=== PATIENT | female | born 1945 | race Hispanic/Latino ===

== ENCOUNTER → 2018-07-12 | Outpatient (CLI) | payer OTHER, MEDICARE ==
[~2018-07-12] MED LIST: ACET325T51 PO; AEC81 PO; ASCO500T9 PO; CALC600T12 PO; CLOP75TA14 PO; IBUP-2353 PO; METO25TA3 PO; MULT-965 PO; PANT40TA25 PO; SIMV40TA2 PO; VITA1CAP PO
== END | disposition home or self-care (01) ==
LOC: RAH 08:32
PROVIDERS: ATTEND Internal Medicine
DX: I71.4 Abdominal aortic aneurysm, without rupture (principal)
CPT/HCPCS: 76700

== ENCOUNTER 2018-08-02 13:05 | Emergency (ER) | payer OTHER, MEDICARE ==
[2018-08-02] MEDS ORDERED: MORPHINE SULFATE 2 MG/ML 1ML SYG ONE (13:55)
[2018-08-02 14:12] LABS: BASOPHILS % (AUTO) 0.4 % (0.0-5.0); EOSINOPHILS % (AUTO) 0.3 % (0.0-8.0); HEMATOCRIT 39.9 % (36-48); LYMPHOCYTES % (AUTO) 13.1 % (21.0-51.0); MEAN CORPUSCULAR HEMOGLOBIN 35.5 pg (27.0-33.0); MEAN CORPUSCULAR HGB CONC 33.5 g/dL (32.0-36.0); MEAN CORPUSCULAR VOLUME 105.9 fL (79-99); MONOCYTES % (AUTO) 1.6 % (3.0-13.0); NEUTROPHILS % (AUTO) 84.6 % (40.0-77.0); PLATELET COUNT (AUTO) 246 K/uL (130-400); RED BLOOD CELL COUNT(AUTO) 3.76 MIL/uL (4.00-5.50); RED CELL DISTRIBUTION WIDTH 12.7 % (11.0-15.5); WHITE BLOOD COUNT (AUTO) 7.5 K/uL (4.8-10.8)
[2018-08-02 14:35] LABS: B-TYPE NATRIURETIC PEPTIDE 115 pg/mL (0-100)
[2018-08-02 15:45] LABS: CREATININE 0.7 mg/dL (0.5-1.5); POTASSIUM 4.1 mmol/L (3.5-5.1)
[2018-08-02 15:50] LABS: ALBUMIN 3.6 g/dL (3.5-5.0); BILIRUBIN,TOTAL 0.3 mg/dL (0.2-1.0); TOTAL PROTEIN, SERUM 7.2 g/dL (6.0-8.3)
== END 2018-08-02 16:24 | disposition home or self-care (01) ==
LOC: EDH 13:05
DX: G89.18 Other acute postprocedural pain (principal); I11.0 Hypertensive heart disease with heart failure; R06.02 Shortness of breath; I50.9 Heart failure, unspecified; E78.5 Hyperlipidemia, unspecified; Z90.49 Acquired absence of other specified parts of digestive tract; Z96.649 Presence of unspecified artificial hip joint; Z72.0 Tobacco use; Z88.1 Allergy status to other antibiotic agents
CPT/HCPCS: 36415; 71046; 80053; 82550; 83880; 84484; 85025; 93005; 96372

== ENCOUNTER → 2019-06-19 | Outpatient (CLI) | payer OTHER, MEDICARE ==
[~2019-06-19] MED LIST changes: -IBUP-2353 PO; +IBUP-2784 PO
== END | disposition home or self-care (01) ==
LOC: SHCH 08:33
PROVIDERS: ATTEND Internal Medicine Cardiovascular Disease
DX: R60.9 Edema, unspecified (principal)
CPT/HCPCS: 93970

== ENCOUNTER → 2019-07-16 | Outpatient (CLI) | payer OTHER, MEDICARE | END | disposition home or self-care (01) | LOC: RAH 12:49 | PROVIDERS: ATTEND Internal Medicine | DX: I71.4 Abdominal aortic aneurysm, without rupture (principal); Z90.49 Acquired absence of other specified parts of digestive tract | CPT/HCPCS: 76700 ==

== ENCOUNTER → 2020-02-10 | Outpatient (CLI) | payer OTHER, MEDICARE ==
[~2020-02-10] MED LIST changes: +ASCO500T20 PO; -ASCO500T9 PO; -CALC600T12 PO; +CALC600T15 PO; -PANT40TA25 PO; +PANT40TA54 PO
== END | disposition home or self-care (01) ==
LOC: RAH 07:39
PROVIDERS: ATTEND Internal Medicine
DX: I71.9 Aortic aneurysm of unspecified site, without rupture (principal); R94.5 Abnormal results of liver function studies
CPT/HCPCS: 76700

== ENCOUNTER → 2020-04-02 | Outpatient (CLI) | payer OTHER, MEDICARE | END | disposition home or self-care (01) | LOC: SHCH 08:00 | PROVIDERS: ATTEND Internal Medicine Cardiovascular Disease | DX: I71.4 Abdominal aortic aneurysm, without rupture (principal) | CPT/HCPCS: 93978 ==

== ENCOUNTER → 2020-05-14 | Outpatient (CLI) | payer OTHER, MEDICARE ==
[~2020-05-14] MED LIST changes: +IOHEXOL-350 50ML VIAL IV ONE
== END | disposition home or self-care (01) ==
LOC: RAH 08:40
PROVIDERS: ATTEND Internal Medicine Cardiovascular Disease
DX: I71.4 Abdominal aortic aneurysm, without rupture (principal); I70.0 Atherosclerosis of aorta; I70.8 Atherosclerosis of other arteries; K83.8 Other specified diseases of biliary tract; Z90.49 Acquired absence of other specified parts of digestive tract
CPT/HCPCS: 74174; Q9967

== ENCOUNTER → 2020-05-21 | Outpatient (CLI) | payer OTHER, MEDICARE ==
[~2020-05-21] MED LIST changes: -IOHEXOL-350 50ML VIAL IV ONE
== END | disposition home or self-care (01) ==
LOC: RAH 10:00
PROVIDERS: ATTEND Internal Medicine
DX: R60.0 Localized edema (principal)
CPT/HCPCS: 76882

== ENCOUNTER 2020-08-24 09:00 | Inpatient (IN) | payer OTHER, MEDICARE ==
[~2020-08-24] VITALS: Ht 180.3 cm; Wt 64.7 kg
[~2020-08-24 09:00] MED LIST changes: -ACET325T51 PO; +CALC-1125 PO; -CALC600T15 PO; -IBUP-2784 PO; -METO25TA3 PO; -MULT-965 PO; -SIMV40TA2 PO
[2020-08-24 10:36] LABS: BASOPHILS % (AUTO) 0.8 % (0.0-5.0); EOSINOPHILS % (AUTO) 2.8 % (0.0-8.0); HEMATOCRIT 37.2 % (36-48); LYMPHOCYTES % (AUTO) 30.4 % (21.0-51.0); MEAN CORPUSCULAR HEMOGLOBIN 35.7 pg (27.0-33.0); MEAN CORPUSCULAR HGB CONC 33.3 g/dL (32.0-36.0); MEAN CORPUSCULAR VOLUME 107.2 fL (79-99); MONOCYTES % (AUTO) 6.2 % (3.0-13.0); NEUTROPHILS % (AUTO) 59.5 % (40.0-77.0); PLATELET COUNT (AUTO) 202 K/uL (130-400); RED BLOOD CELL COUNT(AUTO) 3.47 MIL/uL (4.00-5.50); RED CELL DISTRIBUTION WIDTH 12.7 % (11.0-15.5); WHITE BLOOD COUNT (AUTO) 6.2 K/uL (4.8-10.8)
[2020-08-24 10:41] LABS: APPEARANCE,URINE Clear (CLEAR); BILIRUBIN,URINE Negative (NEGATIVE); COLOR,URINE Yellow (YELLOW); GLUCOSE, URINE (UA) Negative (NEGATIVE); KETONES,URINE Negative (NEGATIVE); LEUKOCYTE ESTERASE ,URINE Small (NEGATIVE); NITRATE,URINE Negative (NEGATIVE); OCCULT BLOOD,URINE Negative (NEGATIVE); PH,URINE 6.5 (5.0-8.0); PROTEIN,URINE Negative (NEGATIVE)
[2020-08-24 10:45] LABS: CREATININE 0.8 mg/dL (0.5-1.5); POTASSIUM 4.3 mmol/L (3.5-5.1)
[2020-08-24 10:49] LABS: PROTHROMBIN TIME 10.9 SEC (9.6-11.6)
[2020-08-24 10:50] LABS: PARTIAL THROMBOPLASTIN TIME 28.9 SEC (26.3-35.5)
[2020-08-24 11:16] LABS: BACTERIA,URINE Rare /HPF (None Seen); RBC,URINE 0-1 /HPF (0-1); SQUAMOUS EPITHELIAL CELL,UR Rare /HPF (0-2); WBC,URINE 0-1 /HPF (0-1)
[2020-08-26] MEDS ORDERED: OMEG-148 PO (09:30)
[2020-08-26] MEDS ORDERED: LOSA50TA2 PO (09:30)
[2020-08-26] MEDS ORDERED: MONT10TA21 PO (09:30)
[2020-08-26] MEDS ORDERED: GABA300C PO (09:30)
[2020-08-26] MEDS ORDERED: MILK500C PO (09:31)
[2020-08-26] MEDS ORDERED: TYLENOL PO (09:31)
[2020-08-27] VITALS (20 sets, daily range): BP systolic 106–156; BP diastolic 47–99
[2020-08-27] MEDS ORDERED: CEFAZOLIN SODIUM 1 GM VIAL IVP SCH (06:00)
[2020-08-27] MEDS ORDERED: 0.9%NACL 1000ML 1,000 ML IV ONE (06:25)
[2020-08-27] MEDS ORDERED: SUCCINYLCHOLINE CHLORIDE 20 MG/ML 10 ML VIAL ONE (06:28)
[2020-08-27] MEDS ORDERED: DEXAMETHASONE SOD PHOSPHATE 10MG/ML 1ML VIAL ONE (06:29)
[2020-08-27] MEDS ORDERED: PROPOFOL 10 MG/ML 20ML VIAL IV ONE ×2 (06:29→06:30)
[2020-08-27] MEDS ORDERED: ONDANSETRON 4MG INJ ONE ×2 (06:29→11:36)
[2020-08-27] MEDS ORDERED: LIDOCAINE PF 100MG/5ML (2%) SYRINGE 5ML ONE (06:29)
[2020-08-27] MEDS ORDERED: NEOSTIGMINE 5MG/5ML SYR IV ONE (06:29)
[2020-08-27] MEDS ORDERED: GLYCOPYRROLATE 1 MG/5 ML SYRINGE ONE (06:29)
[2020-08-27] MEDS ORDERED: MIDAZOLAM HCL 1 MG/ML 2ML VIAL ONE (06:29)
[2020-08-27] MEDS ORDERED: ROCURONIUM 10MG/1ML SYR 10 MG/ML ML ONE (06:30)
[2020-08-27] MEDS ORDERED: FENTANYL CITRATE PF 50 MCG/1 ML 2ML VIAL ONE ×2 (06:30)
[2020-08-27] MEDS ORDERED: PHENYLEPHRINE HCL 10 MG/ML 1ML VIAL IV ONE (06:32)
[2020-08-27] MEDS ORDERED: IODIXANOL 320 MG/ML 100 ML VIAL ONE (06:50)
[2020-08-27] MEDS ORDERED: HEPARIN 10,000 UNIT/10ML (1,000 UNIT/ML) VIAL ONE (06:50)
[2020-08-27] MEDS ORDERED: EPHEDRINE SULFATE 50 MG/ML AMPULE ONE (07:38)
[2020-08-27] MEDS ORDERED: ROCURONIUM BROMIDE 10MG/1ML 5ML VL ONE (07:57)
[2020-08-27] MEDS ORDERED: GLYCOPYRROLATE 0.2 MG/ML 5 ML VIAL ONE (09:00)
[2020-08-27] MEDS ORDERED: 0.9%NACL 1000ML 1,000 ML IV SCH (09:45)
[2020-08-27] MEDS ORDERED: MORPHINE 4 MG SYG IV PRN (09:45)
[2020-08-27] MEDS ORDERED: PHARMACY COMMUNICATION MISC SCH (09:45)
[2020-08-27] MEDS ORDERED: NOREPINEPHRIN 4MG/NS 250ML 250 ML IV PRN (10:00)
[2020-08-27] MEDS ORDERED: NITROGLYCERIN 50MG/D5W 250ML 1 BOT IV PRN (10:00)
[2020-08-27] MEDS: MORPHINE 5 MG/ML VIAL (5MG OR GREATER DOSE) IV PRN ×2 (10:35→16:42)
[2020-08-27] MEDS ORDERED: MAGNESIUM 2GM PREMIX 50ML 50 ML IV PRN (11:15)
[2020-08-27 11:30] LABS: HEMATOCRIT 37.3 % (36-48); MEAN CORPUSCULAR HEMOGLOBIN 35.4 pg (27.0-33.0); MEAN CORPUSCULAR HGB CONC 31.9 g/dL (32.0-36.0); RED BLOOD CELL COUNT(AUTO) 3.36 MIL/uL (4.00-5.50); RED CELL DISTRIBUTION WIDTH 12.8 % (11.0-15.5); WHITE BLOOD COUNT (AUTO) 6.9 K/uL (4.8-10.8)
[2020-08-27] MEDS ORDERED: IPRATROPIUM 0.5 MG/2.5 ML INH IH PRN (11:30)
[2020-08-27] MEDS ORDERED: ONDANSETRON 4MG INJ IVP SCH (11:30)
[2020-08-27] MEDS ORDERED: ONDANSETRON 4MG INJ IVP PRN (11:30)
[2020-08-27 12:00] LABS: ALBUMIN 3.5 g/dL (3.5-5.0); BILIRUBIN,TOTAL 0.4 mg/dL (0.2-1.0); CREATININE 0.9 mg/dL (0.5-1.5); MAGNESIUM 1.5 mg/dL (1.80-2.40); POTASSIUM 4.3 mmol/L (3.5-5.1); TOTAL PROTEIN, SERUM 6.9 g/dL (6.0-8.3)
[2020-08-27] MEDS: IPRATROPIUM 0.5 MG/2.5 ML INH IH SCH (12:14)
[2020-08-27 13:38] LABS: INR 1.1 (0.85-1.15); PROTHROMBIN TIME 11.9 SEC (9.6-11.6)
[2020-08-27] MEDS: CALCIUM CARB 500MG PO SCH ×2 (14:00→20:03)
[2020-08-27] MEDS: ASCORBIC ACID 500 MG TAB PO SCH ×2 (14:00→20:03)
[2020-08-27] MEDS: CEFAZOLIN SODIUM 1 GM VIAL IVP SCH ×2 (16:42→23:16)
[2020-08-27] MEDS: VITAMIN B COMPLEX 1 CAPSULE PO SCH (20:02)
[2020-08-27] MEDS: LOSARTAN 50 MG TABLET PO SCH (20:02)
[2020-08-27] MEDS: MONTELUKAST SODIUM 10 MG TAB PO SCH (20:03)
[2020-08-27] MEDS: GABAPENTIN 300 MG CAPSULE PO SCH (20:03)
[2020-08-27] MEDS: ACETAMINOPHEN 325 MG TAB PO SCH (20:04)
[2020-08-27] MEDS: **HM** MILK THISTLE 1000MG PO SCH (20:14)
[2020-08-28] VITALS (23 sets, daily range): BP systolic 102–159; BP diastolic 45–71
[2020-08-28] MEDS: MORPHINE 5 MG/ML VIAL (5MG OR GREATER DOSE) IV PRN ×3 (01:02→22:16)
[2020-08-28 03:28] LABS: HEMATOCRIT 31.8 % (36-48); MEAN CORPUSCULAR HEMOGLOBIN 34.9 pg (27.0-33.0); MEAN CORPUSCULAR HGB CONC 32.7 g/dL (32.0-36.0); MEAN CORPUSCULAR VOLUME 106.7 fL (79-99); RED BLOOD CELL COUNT(AUTO) 2.98 MIL/uL (4.00-5.50); RED CELL DISTRIBUTION WIDTH 12.6 % (11.0-15.5); WHITE BLOOD COUNT (AUTO) 7.3 K/uL (4.8-10.8)
[2020-08-28 03:37] LABS: CREATININE 0.7 mg/dL (0.5-1.5); MAGNESIUM 2.4 mg/dL (1.80-2.40); POTASSIUM 4.1 mmol/L (3.5-5.1)
[2020-08-28] MEDS: PANTOPRAZOLE 40 MG TAB DR PO SCH (08:48)
[2020-08-28] MEDS: FISH OIL 1000 MG/CAP PO SCH (08:49)
[2020-08-28] MEDS: ASPIRIN 81 MG EC TAB PO SCH (09:19)
[2020-08-28] MEDS: ASCORBIC ACID 500 MG TAB PO SCH ×3 (09:20→22:02)
[2020-08-28] MEDS: GABAPENTIN 300 MG CAPSULE PO SCH ×2 (09:20→21:58)
[2020-08-28] MEDS: CALCIUM CARB 500MG PO SCH ×3 (09:20→21:58)
[2020-08-28] MEDS: CLOPIDOGREL 75MG TAB PO SCH (09:20)
[2020-08-28] MEDS: ACETAMINOPHEN 325 MG TAB PO SCH ×2 (09:34→13:43)
[2020-08-28] MEDS: NICOTINE 21 MG/ 24 HR PATCH TD SCH (10:16)
[2020-08-28] MEDS: IPRATROPIUM 0.5 MG/2.5 ML INH IH SCH (11:30)
[2020-08-28] MEDS: VITAMIN B COMPLEX 1 CAPSULE PO SCH (21:57)
[2020-08-28] MEDS: LOSARTAN 50 MG TABLET PO SCH (21:57)
[2020-08-28] MEDS: PHENAZOPYRIDINE HCL 200 MG TABLET PO SCH (22:02)
[2020-08-28] MEDS: MONTELUKAST SODIUM 10 MG TAB PO SCH (22:02)
[2020-08-28] MEDS: **HM** MILK THISTLE 1000MG PO SCH (22:04)
[2020-08-29] VITALS (10 sets, daily range): BP systolic 139–162; BP diastolic 50–78
[2020-08-29 08:12] LABS: APPEARANCE,URINE Clear (CLEAR); BILIRUBIN,URINE Negative (NEGATIVE); COLOR,URINE Dark Yellow (YELLOW); GLUCOSE, URINE (UA) Negative (NEGATIVE); KETONES,URINE Negative (NEGATIVE); LEUKOCYTE ESTERASE ,URINE Negative (NEGATIVE); NITRATE,URINE Positive (NEGATIVE); OCCULT BLOOD,URINE Negative (NEGATIVE); PH,URINE 8.5 (5.0-8.0); PROTEIN,URINE Negative (NEGATIVE)
[2020-08-29] MEDS: ASPIRIN 81 MG EC TAB PO SCH (08:15)
[2020-08-29] MEDS: PHENAZOPYRIDINE HCL 200 MG TABLET PO SCH ×2 (08:15→14:07)
[2020-08-29] MEDS: CLOPIDOGREL 75MG TAB PO SCH (08:15)
[2020-08-29] MEDS: FISH OIL 1000 MG/CAP PO SCH (08:17)
[2020-08-29] MEDS: PANTOPRAZOLE 40 MG TAB DR PO SCH (08:18)
[2020-08-29] MEDS: GABAPENTIN 300 MG CAPSULE PO SCH (08:18)
[2020-08-29] MEDS: NICOTINE 21 MG/ 24 HR PATCH TD SCH (08:19)
[2020-08-29 08:28] LABS: BACTERIA,URINE Rare /HPF (None Seen); RBC,URINE 0-1 /HPF (0-1); SQUAMOUS EPITHELIAL CELL,UR None Seen /HPF (0-2); WBC,URINE 0-1 /HPF (0-1)
[2020-08-29] MEDS: ASCORBIC ACID 500 MG TAB PO SCH ×2 (08:49→14:06)
[2020-08-29] MEDS: IPRATROPIUM 0.5 MG/2.5 ML INH IH SCH (11:30)
[2020-08-29] MEDS ORDERED: CEPH500B PO (11:55)
[2020-08-29] MEDS: CALCIUM CARB 500MG PO SCH ×2 (12:13→14:06)
[2020-12-30] MEDS ORDERED: LISI10TA24 PO (13:16)
[2020-12-30] MEDS ORDERED: LACT1CAP62 PO (13:16)
[2020-12-30] MEDS ORDERED: HYDR10 PO (13:16)
[2020-12-30] MEDS ORDERED: [UNRECOGNIZED DRUG - CODE] SQ (13:16)
[2020-12-30] MEDS ORDERED: MULT-1203 PO (13:16)
[2020-12-30] MEDS ORDERED: ACET-2247 PO (13:16)
[2020-12-30] MEDS ORDERED: NYST5ORA7 PO (13:16)
[2020-12-30] MEDS ORDERED: LEVE500S7 PO (13:16)
[2020-12-30] MEDS ORDERED: FAMO20TA8 PO (13:16)
[2020-12-30] MEDS ORDERED: ONDA-104 PEG (13:30)
[2020-12-30] MEDS ORDERED: NITR0.4T SL (13:30)
[2020-12-30] MEDS ORDERED: BALS60OI TP (13:39)
[2020-12-30] MEDS ORDERED: ZINC220T4 PO (13:39)
[2020-12-30] MEDS ORDERED: ipratropium bromide IH (13:50)
[2020-12-30] MEDS ORDERED: ALBU2.5V2 IH (13:50)
[2020-12-30] MEDS ORDERED: INSU100V42 SQ (14:00)
== END 2020-08-29 18:27 | disposition home or self-care (01) | DRG 269 ==
LOC: EDSTATUS 09:00 → DAHIP 08-27 05:30 → 2DH 08-27 09:10
PROVIDERS: ADMIT Internal Medicine; ATTEND Internal Medicine
PROC: B4101ZZ Fluoroscopy of Abdominal Aorta using Low Osmolar Contrast (ICD-10-PCS; principal; 2020-08-27)
PROC: 04V03FZ Restriction of Abdominal Aorta with Branched or Fenestrated Intraluminal Device, Three or More Arteries, Percutaneous Approach (ICD-10-PCS; 2020-08-27)
DX: I71.4 Abdominal aortic aneurysm, without rupture (principal); N39.0 Urinary tract infection, site not specified; I97.89 Other postprocedural complications and disorders of the circulatory system, not elsewhere classified; Z20.822 Contact with and (suspected) exposure to COVID-19; E78.5 Hyperlipidemia, unspecified; I10 Essential (primary) hypertension; I25.10 Atherosclerotic heart disease of native coronary artery without angina pectoris; I73.9 Peripheral vascular disease, unspecified; J44.9 Chronic obstructive pulmonary disease, unspecified; M19.90 Unspecified osteoarthritis, unspecified site; Z79.82 Long term (current) use of aspirin; Z91.14 Patient's other noncompliance with medication regimen; Z95.5 Presence of coronary angioplasty implant and graft; Z79.899 Other long term (current) drug therapy; Z88.8 Allergy status to other drugs, medicaments and biological substances; Y83.8 Other surgical procedures as the cause of abnormal reaction of the patient, or of later complication, without mention of misadventure at the time of the procedure; Y92.89 Other specified places as the place of occurrence of the external cause
CPT/HCPCS: 34705; 34713; 36415; 71045; 80048; 80053; 81001; 83735; 83880; 85025; 85027; 85347; 85378; 85610; 85730; 86850; 86900; 86901; 87088; 87426; 93005; 97039; A4344; C1725; C1760; C1769; C1887; C1894; J0330; J0690; J1100; J1644; J2001; J2250; J2270; J2370; J2405; J2704; J2710; J3010; J3475; J3490; J7030; Q9967